=== PATIENT | male | born 1970 | race Caucasian/White ===

== ENCOUNTER → 2017-02-15 | Outpatient (CLI) | payer OTHER | LOC: LAB 13:57 | DX: Z02.1 Encounter for pre-employment examination (principal) | CPT/HCPCS: 86706; 86735; 86762; 86765; 86787 ==

== ENCOUNTER 2022-05-07 06:02 | Emergency (ER) | payer BC | END 2022-05-07 07:00 | disposition home or self-care (01) | LOC: ER1 06:02 | DX: U07.1 COVID-19 (principal) | CPT/HCPCS: 99283; U0002 ==